=== PATIENT | female | born 1960 | race Caucasian/White ===

== ENCOUNTER 2018-11-26 12:50 | Emergency (ER) | payer OTHER ==
[2018-11-26 12:59] VITALS: TEMP 97.8; BMI 23.3
[2018-11-26] MEDS ORDERED: SODIUM CHLORIDE 2,000 ML IV STA (14:39)
[2018-11-26] MEDS ORDERED: ONDANSETRON 4 MG/2 ML VIAL IVPUSH ONE (14:39)
[2018-11-26] MEDS ORDERED: FAMOTIDINE 20 MG/50 ML IVPB 20 MG/50 ML MG IVPB ONE ×2 (14:39→15:42)
--- NOTE | 2018-11-26 14:41 | PDOC ---
History of Present Illness - General Chief Complaint: Vomiting/Diarrhea Stated Complaint: SEVERE DIARRHEA Time Seen by Provider: 11/26/18 14:20 - History of Present Illness Initial Comments: 58yo F with history of hola's thyroiditis, GERD, hiatal hernia presenting with vomiting and diarrhea. Patient states that around 5am she started having several episodes of vomiting and diarrhea, about three of each every hour. She has been unable to tolerate any po intake, even water. Patient endorses feeling weak. She also has epigastric pain which she attributes to her retching. Last night she ate seafood that no one else had. Also endorses one sick contact who had a "stomach flu." Denies recent antibiotic use. No fevers, chills, chest pain , or shortness of breath. Past History - Past Medical History Allergies/Adverse Reactions: Allergies Allergy/AdvReac Type Severity Reaction Status Date / Time ampicillin Allergy Verified 11/26/18 13:00 azithromycin Allergy Verified 11/26/18 13:00 ciprofloxacin Allergy Verified 11/26/18 13:00 sulfamethoxazole Allergy Verified 11/26/18 13:00 [From Bactrim] trimethoprim [From Bactrim] Allergy Verified 11/26/18 13:00 Home Medications: Ambulatory Orders Ondansetron [Zofran Odt -] 4 mg SL TID #21 od.tablet 11/26/18 COPD: No Thyroid Disease: Yes (raúl) - Suicide/Smoking/Psychosocial Hx Smoking History: Never smoked Have you smoked in the past 12 months: No Information on smoking cessation initiated: No Hx Alcohol Use: No Drug/Substance Use Hx: No Review of Systems - Review of Systems Comments:: Constitutional: no fever, no chills HEENT: no throat pain, no dysphagia Cardiovascular: no chest pain, no palpitations Respiratory: no cough, no shortness of breath Gastrointestinal: +vomiting, +diarrhea Genitourinary: no dysuria, no frequency Musculoskeletal: no myalgia, no arthralgia Skin: no rash, no itching Neurologic: no headache, no dizziness *Physical Exam - Vital Signs Last Vital Signs Temp Pulse Resp BP Pulse Ox 97.8 F 101 H 16 123/101 H 100 11/26/18 12:58 11/26/18 12:58 11/26/18 12:58 11/26/18 12:58 11/26/18 12:58 - Physical Exam Comments: General: Awake, alert, and fully oriented, in no acute distress Head: No signs of trauma Eyes: EOMI, sclera anicteric ENT: Dry mucus membranes Neck: Normal ROM, supple Lungs: Lungs clear, Normal breath sounds Cardio: Regular rhythm, S1 and S2 present Abdomen: Mild tenderness to palpation in the epigastrium. Soft, nondistended. No guarding, no rebound, no masses Extremities: Normal range of motion, Distal pulses present SKIN: Warm, Dry, skin tenting present Neurologic: Cranial nerves II through XII grossly intact. Normal speech Moderate Sedation - Procedure Monitoring Vital Signs: Procedure Monitoring Vital Signs Temperature 97.8 F 11/26/18 12:58 Pulse Rate 101 H 11/26/18 12:58 Respiratory Rate 16 11/26/18 12:58 Blood Pressure 123/101 H 11/26/18 12:58 O2 Sat by Pulse Oximetry (%) 100 11/26/18 12:58 ED Treatment Course - LABORATORY CBC & Chemistry Diagram: 11/26/18 15:33 11/26/18 15:33 Medical Decision Making - Medical Decision Making 58yo F with history of hola's thyroiditis, GERD, hiatal hernia presenting with vomiting and diarrhea. DDX including but not limited to gastroenteritis, gastritis, pancreatitis, hepatitis, cholecystitis Zofran, Famotidine, Ofirmev, 1L NS given Patient feeling better, no longer nauseous. No episodes of vomiting and diarrhea since receiving medicines. Passed po challenge of water and crackers Leukocytosis of 13.5, UA negative Patient's presentation consistent with gastroenteritis. Patient discharged *DC/Admit/Observation/Transfer Diagnosis at time of Disposition: Diarrhea - Discharge Dispostion Condition at time of disposition: Stable - Prescriptions Prescriptions: Ondansetron [Zofran Odt -] 4 mg SL TID #21 od.tablet - Referrals Referrals: Fern Mendoza [Primary Care Provider] - - Patient Instructions Printed Discharge Instructions: DI for Vomiting -- Adult Additional Instructions: You came into the ED for diarrhea and vomiting. Anti-nausea medicine has been sent to your pharmacy. Take as needed for nausea/ vomiting, no more than every 8 hours. You can take [id number] tylenol for pain. Follow the instructions on the medication bottle. Follow-up with your primary care doctor this week to discuss this ED visit and to further evaluate your symptoms. Immediate medical attention is required if you have: you develop worsening pain , high fevers, persistent nausea/vomiting that does not improve with antinausea medicine, or any new or concerning symptoms. If you think you are having an emergency, call for emergency medical services or present to the emergency department right away. - Post Discharge Activity
--- NOTE | 2018-11-26 15:31 | PDOC ---
Attending Attestation - Resident Resident Name: Mary Anne Johnson - ED Attending Attestation I have performed the following: I have examined & evaluated the patient, The case was reviewed & discussed with the resident, I agree w/resident's findings & plan, Exceptions are as noted - HPI HPI: 11/26/18 15:27 The patient is a 58 year old female, with a significant past medical history of hashimotos thyroiditis, GERD, and hiatal hernia, who presents to the emergency department with vomiting, diarrhea, and abdominal pain, for 1 day. The patient reports she has 3x episodes of bilious vomiting and diarrhea each hour, both nonbloody. Pt reports epigastric pain associated with retching. No abdominal pain currently. The patient tried to drink water in ED, and she was unable to keep it down. 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 The patient reports eating seafood yesterday and is unsure if that is related to her current symptoms. The patient also reports chills and muscle cramps that she attributes to dehydration, secondary to her inability to keep water/food down. She denies recent fevers. She denies recent constipation. She denies recent dysuria, frequency, urgency or hematuria. She denies recent chest pain or shortness of breath. Allergies: ampicillin, azithromycin, ciprofloxacin, sulfamethoxazole, trimethoprim Primary Care Physician: Dr. Mendoza, Phone# [phone] - Physicial Exam PE: 11/26/18 15:30 "GENERAL: Awake, alert, and fully oriented, in no acute distress. HEAD: No signs of trauma EYES: PERRLA, EOMI, sclera anicteric, conjunctiva clear ENT: Auricles normal inspection, hearing grossly normal, nares patent, oropharynx clear without exudates. Moist mucosa NECK: Nontender, no stepoffs, Normal ROM, supple, no lymphadenopathy, JVD, or masses LUNGS: Breath sounds equal, clear to auscultation bilaterally. No wheezes, and no crackles HEART: Regular rate and rhythm, normal S1 and S2, no murmurs, rubs or gallops ABDOMEN: Soft, nontender, normoactive bowel sounds. No guarding, no rebound. No masses EXTREMITIES: Normal range of motion, no edema. No clubbing or cyanosis. No cords, erythema, or tenderness NEUROLOGICAL: Cranial nerves II through XII intact. 5/5 strength and sensation in all extremities, Normal speech, normal gait, normal cerebellar function SKIN: Warm, Dry, normal turgor, no rashes or lesions noted. - Medical Decision Making 11/26/18 15:30 58 F with N+V+D, likely viral gastroenteritis. Benign abdominal exam in ED. Low suspicion for acute intraabdominal process. - Labs - IVF, GI cocktail Labs wnl Pt reassessed, tolerating PO. Repeat abdominal exam benign Pt is well appearing, with normal vitals. Clinically stable for DC at this time. I discussed the physical exam findings, ancillary test results and final diagnoses with the patient. I answered all of the patient's questions. The patient was satisfied with the care received and felt comfortable with the discharge plan and treatment plan. The patient agrees to follow up with the primary care physician within 24-72 hours.
[2018-11-26] MEDS ORDERED: ACETAMINOPHEN 1000 MG/100 ML VIAL (NON FORMULARY) IVPB ONE (15:35)
[2018-11-26] MEDS ORDERED: ONDANSETRON 4 MG/2 ML VIAL ONE (15:42)
[2018-11-26] MEDS ORDERED: ACETAMINOPHEN INJECTION 100 ML IVPB ONE (15:42)
[2018-11-26 15:44] LABS: BASO % 0.5 % (0-2.0); EOS % 0.1 % (0-4.5); HEMATOCRIT 51.2 % (32.4-45.2); HEMOGLOBIN 17.7 GM/dL (10.7-15.3); LYMPH % 0.7 % (8-40); MCH 32.7 pg (25.7-33.7); MCHC 34.5 g/dl (32.0-36.0); MEAN CELL VOLUME 94.7 fl (80-96); MEAN PLT VOLUME 7.2 fl (7.5-11.1); MONO % 2.7 % (3.8-10.2); PLATELET COUNT 314 K/MM3 (134-434); RDW 12.9 % (11.6-15.6); WHITE BLOOD COUNT 13.2 K/mm3 (4.0-10.0)
[2018-11-26 16:48] LABS: ALBUMIN 4.4 g/dl (3.4-5.0); ALK PHOS 108 U/L (45-117); ANION GAP 8 MMOL/L (8-16); BILIRUBIN,TOTAL 0.7 mg/dL (0.2-1); BLOOD UREA NITROGEN 29 mg/dL (7-18); CALCIUM 9.9 mg/dL (8.5-10.1); CHLORIDE 103 mmol/L (98-107); CO2 28 mmol/L (21-32); GLUCOSE,RANDOM 117 mg/dL (74-106); LIPASE 262 U/L (73-393); SGPT/ALT 34 U/L (13-61); SODIUM 139 mmol/L (136-145); TOT PROT 7.9 g/dl (6.4-8.2)
[2018-11-26 16:49] LABS: SGOT/AST 29 U/L (15-37)
[2018-11-26 17:20] LABS: URINE APPEARANCE SLCLOUDY; URINE BILIRUBIN NEGATIVE (<2.0 mg/dL); URINE COLOR YELLOW; URINE GLUCOSE (UA) NEGATIVE (NEGATIVE); URINE KETONE TRACE (NEGATIVE); URINE LEUK ESTERASE NEGATIVE (NEGATIVE); URINE NITRITE NEGATIVE (NEGATIVE); URINE PROTEIN NEGATIVE (NEGATIVE); URINE UROBILINOGEN NEGATIVE mg/dL (0.2-1.0)
[2018-11-26 18:20] LABS: PLATELET ESTIMATE ADEQUATE
[2018-11-26 18:27] VITALS: BP 119/88; PULSE 89
== END 2018-11-26 18:29 | disposition home or self-care (01) ==
LOC: JER 12:50
PROC: 3E033GC Introduction of Other Therapeutic Substance into Peripheral Vein, Percutaneous Approach (ICD-10-PCS; principal; 2018-11-26)
PROC: 3E033GC Introduction of Other Therapeutic Substance into Peripheral Vein, Percutaneous Approach (ICD-10-PCS; 2018-11-26)
PROC: 3E033NZ Introduction of Analgesics, Hypnotics, Sedatives into Peripheral Vein, Percutaneous Approach (ICD-10-PCS; 2018-11-26)
DX: R19.7 Diarrhea, unspecified (principal); E06.3 Autoimmune thyroiditis; K21.9 Gastro-esophageal reflux disease without esophagitis; K44.9 Diaphragmatic hernia without obstruction or gangrene
CPT/HCPCS: 36415; 80053; 81003; 83690; 85025; 87086; 96365; 96375; 99282-25; J0131; J7030